=== PATIENT | male | born 1975 | race Caucasian/White ===

== ENCOUNTER 2024-01-06 11:04 | Emergency (ER) | payer OTHER, SELFPAY ==
--- NOTE | 2024-01-06 11:16 | ED.URI ---
HPI - URI/Sore Throat General Chief Complaint: Upper Respiratory Infection Stated Complaint: Flu Symptoms Source: patient Mode of arrival: ambulatory Limitations: no limitations History of Present Illness HPI Narrative: 48 year old man presented for complaint of fever, chills, and fatigue. Onset yesterday. Endorses temperature up to 104.3 last night. He is alternating Tylenol and ibuprofen. Endorses significant sweating when the fever breaks. Denies any other symptoms, but states he did notice urine is dark with foul odor. Denies known sick contacts but was at a children's gathering recently. Denies chest pain, palpitations, cough, shortness of breath, hematuria, flank pain, nausea, vomiting, diarrhea. Related Data Home Medications Medication Instructions Recorded Confirmed albuterol sulfate 90 mcg/actuation 90 mcg inhalation PRN PRN asthma 01/06/24 01/06/24 aerosol inhaler omeprazole 20 mg capsule,delayed 20 mg PO BID 01/06/24 01/06/24 release semaglutide (weight loss) 1.7 1.7 mg subcut WEEKLY 01/06/24 01/06/24 mg/0.75 mL subcutaneous pen injector ([employer]) Allergies Allergy/AdvReac Type Severity Reaction Status Date / Time lanolin Allergy Unknown Verified 01/06/24 11:18 Review of Systems Review of Systems: CONSTITUTIONAL: Denies body aches, reports fever, chills, sweats. EYES: Denies visual changes, redness, or discharge. ENT: Denies rhinorrhea, congestion, sore throat, or otalgia. CARDIOVASCULAR: Denies chest pain, palpitations, or edema. RESPIRATORY: Denies cough or dyspnea. GASTROINTESTINAL: Denies abdominal pain, nausea, vomiting, or diarrhea. GENITOURINARY: Denies dysuria or hematuria. SKIN: Denies rash MUSCULOSKELETAL: Denies back pain, joint pain, or myalgia. NEUROLOGIC: Denies headache, numbness, tingling, or weakness. All systems reviewed & are unremarkable except as noted in HPI and below PMFSH Comments At time of signature, I have reviewed and agree with nursing past medical, surgical, social and family history unless otherwise noted. Please see nursing chart for further information. There is no relevant family history pertinent to the presenting complaint Exam Narrative: GENERAL: Well-appearing and in no acute distress. EYES: EOMI. No redness or drainage. Conjunctivae normal. ENT: Mucous membranes pink and moist. No rhinorrhea. TMs normal bilaterally. Throat normal. Uvula midline. CHEST: No respiratory distress. Clear to auscultation. HEART: Regular rate and rhythm. No murmur appreciated. Normal peripheral pulses. ABDOMEN: Soft, nontender, nondistended, normal active bowel sounds. SKIN: Warm, normal color, sweating c/w fever breaking; no rash. Capillary refill normal. Normal skin turgor. NEURO: No focal deficits. Alert and oriented x3. Gait steady. PSYCH: Normal affect. Course Course Emergency Course: Patient is aware of diagnosis, understands and agrees to treatment plan. Anticipatory guidance given. Patient agrees to follow-up as directed and is aware of reasons to seek care at the emergency department. Portions of this record may have been created with voice recognition software Level of Care: Express Care Visit Vital Signs Vital signs: Vital Signs Temperature 99 F 01/06/24 11:23 Pulse Rate 113 H 01/06/24 11:23 Respiratory Rate 16 01/06/24 11:23 Blood Pressure 102/68 01/06/24 11:23 Pulse Oximetry 98 01/06/24 11:23 Temperature 99 F 01/06/24 11:23 Pulse Rate 113 H 01/06/24 11:23 Respiratory Rate 16 01/06/24 11:23 Blood Pressure 102/68 01/06/24 11:23 Pulse Oximetry 98 01/06/24 11:23 MDM - URI/Sore Throat MDM Narrative Medical decision making narrative: Discussed physical exam findings and test results. Urine shows Leuk, nitrate, blood, Ket; Rx Macrobid. Advised supportive measures and signs/symptoms to go to the ER at length. Pt is appropriate for outpt treatment and f/u. Differential Diagnosis Differential diagn
[2024-01-06 11:23] VITALS: BP 102/68; PULSE 113; RESP 16; TEMP 37.2; O2SAT 98
[2024-01-06 11:35] LABS: EDCOVIDSCREEN Negative (Negative); EDINFLUASCREEN Negative (Negative); EDINFLUBSCREEN Negative (Negative)
[2024-01-06 11:50] LABS: EDUAAPPEAR Cloudy; EDUABILI 1+ (Negative); EDUABLOOD Trace (Negative); EDUACOLOR1 Dark; EDUAGLUCOSE Negative (Negative); EDUAKETONE 2+ (Negative); EDUALEUKO 1+ (Negative); EDUANITRATE Positive (Negative); EDUAPROTEIN 2+ (Negative)
[2024-01-06 11:52] LABS: EDSTREPNEGPOS1 Negative (Negative)
== END 2024-01-06 12:05 | disposition home or self-care (01) ==
PROVIDERS: Emergency Provider Nurse Practitioner Family
DX: R50.9 Fever, unspecified (principal); Z20.822 Contact with and (suspected) exposure to COVID-19; J45.909 Unspecified asthma, uncomplicated; K21.9 Gastro-esophageal reflux disease without esophagitis
CPT/HCPCS: 81003; 87081; 87086; 87426; 87804; 87880; 99203; G0463

== ENCOUNTER 2024-01-06 18:25 | Emergency (ER) | payer OTHER, SELFPAY ==
--- NOTE | ~2024-01-06 | CT_ITS ---
EXAMINATION: CT abdomen pelvis wo con DATE: 01/06/2024 20:39 INDICATION: Left flank pain. TECHNIQUE: Computed tomography (CT) of the abdomen and pelvis was performed without intravenous contr ast. Automated exposure control and iterative reconstruction technique were employed. The dose-length product was 1653.94 mGy-cm. COMPARISON: None. FINDINGS: The visualized portions of the lung bases demonstrate mild atelectasis. No pleural effusion . The heart size is normal. No pericardial effusion. There is a small sliding hiatal hernia. There is diffuse hepatic steatosis. The gallbladder, spleen, pancreas, adrenal glands, and kidneys are normal . There is no urolithiasis. There is a right posterior bladder diverticulum. The prostate is mildly e nlarged. There is diverticulosis of the colon without evidence of diverticulitis. The appendix is nor mal. There are no pathologically enlarged lymph nodes. There is no free intraperitoneal fluid. There is severe lower lumbar spondylosis. There is mild thoracic spondylosis. IMPRESSION: 1. No urolithiasis. Reviewed, dictated and finalized at location A. IMPRESSION: 1. No urolithiasis.
[2024-01-06 18:30] VITALS: BP 110/62; PULSE 98; RESP 16; TEMP 37; O2SAT 98
[2024-01-06 19:37] VITALS: BP 111/73; PULSE 89; RESP 14; TEMP 37.4; O2SAT 96
[2024-01-06 19:38] VITALS: PULSE 90; RESP 14; O2SAT 97
[2024-01-06 20:00] LABS: Basophils Percent Auto 0.2 % (0.2-1.2); Hematocrit 42.6 % (42.0-52.0); Hemoglobin 15.5 g/dL (14.0-18.0); Immature Granulocyte Absolute 0.06 K/mm3 (0.00-0.031); Immature Granulocyte Percent A 0.5 % (0-0.5); Lymphocytes Absolute Auto 0.49 K/mm3 (0.9-3.2); Lymphocytes Percent Auto 3.7 % (18.3-44.2); Mean Corpuscular HGB Conc 36.4 g/dl (32-36); Mean Corpuscular Hemoglobin 33.3 pg (26-34); Mean Corpuscular Volume 91.4 fl (80-100); Mean Platelet Volume 9.2 fl (7.4-10.4); Monocytes Absolute Auto 0.7 K/mm3 (0.1-0.6); Monocytes Percent Auto 4.9 % (2.6-8.5); Neutrophils Percent Auto 90.7 % (45.5-73.1); Platelet Count Result 124 k/mm3 (150-375); Red Blood Count 4.66 M/mm3 (4.6-6.20); Red Cell Distribution Width 13.5 % (11.5-14.5); White Blood Count 13.2 K/mm3 (4.5-10.0)
[2024-01-06 20:05] LABS: Add Urine Microscopic? YES; Appearance Urine Cloudy (Clear); Bacteria Urine Rare /hpf; Bilirubin Urine 1+ (Negative); Blood Urine 1+ (Negative); Color Urine Dark Yellow (Yellow); Glucose Urine UA Negative (Negative); Ketones Urine 2+ mg/dL (Negative); Leukocyte Esterase Ur 2+ LEU/UL (Negative); Nitrate Urine Positive (Negative); Non Pathogenic Casts 0-2; Protein Urine 1+ mg/dL (Negative); Specific Grav Ur 1.013 (1.001-1.035); Squamous Epithelial Cell Urine Occasional /hpf (Few); WBC Urine 51-100 /hpf (0-3)
[2024-01-06 20:08] LABS: Alanine Aminotransferase 117 U/L (6-50); Albumin Level 4.1 g/dL (3.5-5.1); Alkaline Phosphatase 76 U/L (38-126); Anion Gap 10 mmol/L (4-12); Aspartate Amino Transferase 89 U/L (17-59); Bilirubin,Total 1.7 mg/dL (0.2-1.3); Blood Urea Nitrogen 11 mg/dL (9-20); Calcium 8.8 mg/dL (8.4-10.2); Carbon Dioxide 23 mmol/L (22-30); Chloride 101 mmol/L (98-107); Estimated CRCL calculation 122 ml/min; Estimated Glomerular Filt Rate > 60; Glucose 145 mg/dL (65-110); Potassium 3.8 mmol/L (3.4-5.0); Sodium 134 mmol/L (137-145)
--- NOTE | 2024-01-06 20:12 | ED.GENADULT ---
HPI - General Adult General Chief complaint: Unspecified Stated complaint: kidney infection Time Seen by Provider: 01/06/24 19:28 History of Present Illness HPI narrative: 48-year-old male presenting with flank pain. States that he has been having intermittent fevers and chills for the last several days. He was seen at urgent care earlier today and diagnosed with the UTI. He was started on Macrobid. He continued to have chills when he got home tonight and complained about left flank pain so his made him come in for evaluation. Complains of mild dysuria. No vomiting or diarrhea. No chest pain, shortness of breath, cough. No further complaints. Related Data Home Medications Medication Instructions Recorded Confirmed albuterol sulfate 90 mcg/actuation 90 mcg inhalation PRN PRN asthma 01/06/24 01/06/24 aerosol inhaler omeprazole 20 mg capsule,delayed 20 mg PO BID 01/06/24 01/06/24 release semaglutide (weight loss) 1.7 1.7 mg subcut WEEKLY 01/06/24 01/06/24 mg/0.75 mL subcutaneous pen injector ([employer]) Allergies Allergy/AdvReac Type Severity Reaction Status Date / Time lanolin Allergy Unknown Verified 01/06/24 11:18 Review of Systems Review of Systems: All systems reviewed & are unremarkable except as noted in HPI and below Exam Narrative: GENERAL: Nontoxic, no acute distress, pleasant cooperative HEAD: Normocephalic, atraumatic. EYES: PERRLA and EOMI. ENT: Mucous membranes moist. NECK: Supple. CHEST: Clear to auscultation. No respiratory distress. HEART: Regular rate and rhythm ABDOMEN: Soft, nontender, nondistended; + mild left CVA tenderness EXTREMITIES: Normal range of motion SKIN: Warm, dry, no rash. NEURO: Alert and oriented x3. PSYCH: Normal mood and affect. Course Vital Signs Vital signs: Vital Signs Temperature 98.6 F 01/06/24 18:30 Pulse Rate 98 01/06/24 18:30 Respiratory Rate 16 01/06/24 18:30 Blood Pressure 110/62 01/06/24 18:30 Pulse Oximetry 98 01/06/24 18:30 Temperature 99.1 F 01/06/24 21:44 Pulse Rate 89 01/06/24 21:30 Respiratory Rate 19 01/06/24 21:30 Blood Pressure 111/73 01/06/24 19:37 Pulse Oximetry 95 01/06/24 21:30 Medical Decision Making MDM Narrative Medical decision making narrative: 48-year-old male presenting with left flank pain and concerns for kidney infection. Vitals are within normal limits. Exam remarkable for the above. Blood work with leukocytosis. Renal function is normal. Lactic acid is normal. UA is concerning for UTI. CT abdomen pelvis reveals no evidence of urolithiasis or pyelonephritis. Patient receiving IV fluids, IV Rocephin. Discussed workup with the patient. Feel he is appropriate for outpatient management. Will switch his Macrobid to Keflex. Advised PCP follow-up. Appropriate return precautions given. Patient is agreeable this plan. Discharged in stable condition. Differential Diagnosis Differential Diagnosis: Pyelonephritis, cystitis, UTI, sepsis Medical Records Medical records reviewed: Yes I reviewed the external patient's medical records. Vital Signs Vital Signs: Vital Signs Temperature 98.6 F 01/06/24 18:30 Pulse Rate 98 01/06/24 18:30 Respiratory Rate 16 01/06/24 18:30 Blood Pressure 110/62 01/06/24 18:30 Pulse Oximetry 98 01/06/24 18:30 Temperature 99.1 F 01/06/24 21:44 Pulse Rate 89 01/06/24 21:30 Respiratory Rate 19 01/06/24 21:30 Blood Pressure 111/73 01/06/24 19:37 Pulse Oximetry 95 01/06/24 21:30 Lab Data Lab results reviewed: Yes I reviewed the patient's lab results. 01/06/24 19:53 01/06/24 19:53 Labs: Lab Results 01/06/24 01/06/24 01/06/24 Range/Units 19:52 19:53 20:31 WBC 13.2 H (4.5-10.0) K/mm3 RBC 4.66 (4.6-6.20) M/mm3 Hgb 15.5 (14.0-18.0) g/dL Hct 42.6 (42.0-52.0) % MCV 91.4 (80-100) fl MCH 33.3 (26-34) pg MCHC 36.4 H (32-36) g/dl RD
[2024-01-06] MEDS: KETOROLAC 15 MG/ML VIAL (*BKC) IV PUSH (20:26)
[2024-01-06] MEDS: SODIUM CHLORIDE 0.9% IV 1,000 ML 999 ML IV CONT (20:26)
[2024-01-06 20:43] LABS: Lipase 50 U/L (23-300)
[2024-01-06 20:45] VITALS: PULSE 88; RESP 17; O2SAT 97
[2024-01-06] MEDS: cefTRIAXone 2 GM/NS 100 ML 2 GM/100 ML BAG IVPB (21:13)
[2024-01-06 21:30] VITALS: PULSE 89; RESP 19; O2SAT 95
[2024-01-06 21:44] VITALS: TEMP 37.3
== END 2024-01-06 21:57 | disposition home or self-care (01) ==
PROVIDERS: Emergency Provider Emergency Medicine
DX: N39.0 Urinary tract infection, site not specified (principal); J45.909 Unspecified asthma, uncomplicated; K21.9 Gastro-esophageal reflux disease without esophagitis; Z79.85 Long-term (current) use of injectable non-insulin antidiabetic drugs
CPT/HCPCS: 36415; 74176; 80053; 81001; 81003; 83605; 83690; 85025; 85055; 87040; 87081; 87086; 87426; 87804; 87880; 96361; 96365; 96375; 99284; J0696; J1885; J7030